=== PATIENT | female | born 1985 | race Caucasian/White ===

== ENCOUNTER → 2021-10-08 16:05 | Outpatient (CLI) | payer OTHER, SELFPAY ==
[2021-10-08 17:46] LABS: COVID19 -Nasal RAPID Negative (Negative)
== END ==
PROVIDERS: Visit Provider Obstetrics & Gynecology
DX: Z20.822 Contact with and (suspected) exposure to COVID-19 (principal); Z01.812 Encounter for preprocedural laboratory examination
CPT/HCPCS: 87635

== ENCOUNTER 2021-10-09 08:45 | Day surgery (SDC) | payer OTHER, SELFPAY ==
[2021-10-06 15:15] VITALS: BMI 27.8
[2021-10-09] MEDS: LACTATED RINGERS 1,000 ML 100 ML IV (09:06)
[2021-10-09 09:14] VITALS: BP 108/69; PULSE 68; RESP 16; TEMP 36.6; O2SAT 100; BMI 27.8
--- NOTE | 2021-10-09 09:28 | PM.PREOP ---
Pre-operative Note COVID-19 COVID-19 status: Negative Result date/Date tested (Pos, Neg/Pending): 10/08/21 Criteria for continued procedure: Non-surgical alternatives not available or appropriate per current SOC Interval Note History & Physical reviewed/Exam performed by Physician: No Changes to H&P: No
--- NOTE | 2021-10-09 10:14 | PM.OP.1 ---
Operative Date/Time/Diagnoses Date of procedure: 10/09/21 Time of procedure: 09:30 Pre-op diagnosis: desires IUD removal Post-op diagnosis: same Procedure & Clinicians Procedure: EUA, pap smear, IUD removal Same procedure as scheduled: Yes Indications: Desires IUD removal under anesthesia Surgeon: Vanita Rodriguez Click Yes if Unassisted: Yes Anesthesia Type: MAC +/- Operative Notes Findings: Normal vulva. Narrow introitus, otherwise normal vagina, normal cervix. Specimen(s): none sent Estimated Blood Loss (mL): 0 Procedure in detail: After informed consent was obtained, the patient was transferred to the OR where IV sedation was obtained and she was placed in the dorsal lithotomy position. A pediatric speculum was inserted and a pap smear performed. The IUD strings were easily visible, grasped with a ring forceps and the IUD removed with gentle traction. The IUD was found to be intact, the speculum was removed and the patient was taken to the PACU in stable condition. IVF 300ccs Complications: none Post-operative Condition: stable Disposition: PACU Plan for aftercare: Routine postop care
[2021-10-09 10:17] VITALS: BP 126/62; PULSE 76; RESP 20; TEMP 36; O2SAT 98
[2021-10-09 10:21] VITALS: BP 111/74; PULSE 65; RESP 16; O2SAT 98
--- NOTE | 2021-10-09 10:24 | SUR.OPER ---
Lithotomy on padded OR bed, head on pillow, arms secured on padded arm boards at <90 degrees abduction. Legs secured in padded yellow fins stirrups.
[2021-10-09 10:25] VITALS: BP 104/77; PULSE 74; RESP 16; O2SAT 97
--- NOTE | 2021-10-09 10:26 | SUR.OPER ---
DR IMCHEL TO TAKE PAP SMEAR SPECIMEN TO OFFICE WITH HER. SPECIMEN LABELED AND FACESHEET GIVN.
== END 2021-10-09 10:50 | disposition home or self-care (01) ==
PROVIDERS: PCP Registered Nurse; Referring Provider Obstetrics & Gynecology; Visit Provider Obstetrics & Gynecology
PROC: (CPT 58301; principal; 2021-10-09 09:45)
DX: Z30.432 Encounter for removal of intrauterine contraceptive device (principal)
CPT/HCPCS: 58301; 81025; 82962; J1100; J2250; J2405; J2704; J3010